=== PATIENT | female | born 1960 | race African-American/Black ===

== ENCOUNTER 2025-01-21 15:06 | Emergency (ER) | payer MEDICARE ==
[~2025-01-21] VITALS: Ht 160 cm; Wt 77.0 kg
[2025-01-21 15:11] VITALS: O2SAT 98
[2025-01-21 15:48] LABS: BASOPHILS % 1.3 % (0.0-2.0); EOSINOPHILS % 1.2 % (0.0-5.0); HEMATOCRIT. 43.1 % (36.0-48.0); HEMOGLOBIN. 13.8 g/dL (12.0-16.0); LYMPHOCYTES % 40.3 % (20.0-50.0); MEAN PLATELET VOLUME 8.8 fl (7.4-10.4); MONOCYTES % 8.3 % (2.0-8.0); NEUTROPHILS % 48.9 % (40.0-76.0); PLATELET 213 x1000/uL (130-400); RED BLOOD CELL COUNT 5.19 mill/uL (4.2-5.4); RED CELL DISTRIBUTION WIDTH 14.8 % (11.6-14.6)
[2025-01-21] MEDS: LACTATED RINGERS 1,000 ML IV ONE (15:53)
[2025-01-21 15:57] LABS: CREATININE 1.0 mg/dL (0.6-1.0); UREA NITROGEN BLOOD 10 mg/dL (9-23)
[2025-01-21 15:58] LABS: TROPONIN I HIGH SENSITIVITY 6 ng/L (3.0-34)
[2025-01-21] MEDS: MAGNESIUM OXIDE 400MG TABLET PO ONE (16:37)
[2025-01-21 16:38] VITALS: BP 165/80; PULSE 59; RESP 24; TEMP 37; O2SAT 100
== END 2025-01-21 16:41 | disposition home or self-care (01) ==
LOC: ER 15:06
DX: R55 Syncope and collapse (principal); R53.83 Other fatigue; R03.0 Elevated blood-pressure reading, without diagnosis of hypertension; E83.42 Hypomagnesemia; Z86.73 Personal history of transient ischemic attack (TIA), and cerebral infarction without residual deficits
CPT/HCPCS: 99285; 96360; 71045; 80048; 82550; 83735; 85025; 84484; 36415; 93005; J7120